=== PATIENT | female | born 1985 ===

== ENCOUNTER → 2016-11-03 | Day surgery (SDC) | payer OTHER ==
[~2016-11-03] VITALS: Ht 157.5 cm; Wt 56.2 kg
[2016-11-03 11:10] LABS: ABSOLUTE BASOPHIL COUNT 0 /CUMM (0.0-0.2); ABSOLUTE EOSINOPHIL COUNT 0.2 /CUMM (0.0-0.7); ABSOLUTE GRANULOCYTE CT 4.4 /CUMM (1.4-6.5); ABSOLUTE LYMPH COUNT 1.3 /CUMM (1.2-3.4); ABSOLUTE MONOCYTE COUNT 0.3 /CUMM (0.10-0.60); BASOPHIL % 0.6 % (0.0-2.0); EOSINOPHIL % 3.1 % (0-5); GRANULOCYTE % 70.6 % (42.2-75.2); HEMATOCRIT 43.1 % (37-47); MEAN CORPUSCULAR HGB 29.1 PG (27.0-31.0); MEAN CORPUSCULAR HGB CONC 33.8 G/DL (33.0-37.0); MEAN CORPUSCULAR VOLUME 86.2 FL (81.0-99.0); MEAN PLATELET VOLUME 8.8 FL (7.4-10.4); PLATELET COUNT 216 /CUMM (130-400); RBC DISTRIBUTION WIDTH 17.1 % (11.5-14.5); RED BLOOD CELL CT 5.01 /CUMM (4.20-5.40); WHITE BLOOD CELL COUNT 6.2 /CUMM (4.8-10.8)
[2016-11-03 11:30] LABS: PTT 36 SEC (25-37)
--- NOTE | 2016-11-08 19:34 | Operative Report ---
Operative/Inv Procedure Report Surgery Date: 11/03/16 Name of Procedure: D&C hysteroscopy Pre-Operative Diagnosis: Metromenorrhagia Post-Operative Diagnosis: Same Estimated Blood Loss: less than 50ml Surgeon/Automatic Splicing Machine Operator: GEORGINA LOU,KETTY Lakhani Anesthesia: moderate sedation Operative/Procedure Note Note: Procedure note patient was taken the operating room placed on position after adequate anesthesia patient placed in dorsal supine position bladder was catheterized examination anesthesia performed a single-tooth tenaculum placed on the anterior lip cervix gentle downward traction form patient tolerated this well . At this point cervix diet 29 Hegar to left insertion his colposcope was inserted and direct visualization using gas hysteroscope was removed sharp curettage of the endometrial lining performed sharp curettage and cervical lining performed 2 specimen sent to pathology patient was returned spine position hemostasis was apparent all instruments removed from the vagina patient was awakened from anesthesia and transferred recovery room awake alert counts correct
== END ==
LOC: STS 02:13
PROVIDERS: Specialist
DX: N92.1 Excessive and frequent menstruation with irregular cycle (principal)
CPT/HCPCS: 36415; 81001; 88305; J0131